=== PATIENT | male | born 1960 | race Caucasian/White ===

== ENCOUNTER 2019-05-31 19:24 | Emergency (ER) | payer OTHER ==
[~2019-05-31] VITALS: Ht 177.8 cm; Wt 79.4 kg
[2019-06-01] MEDS ORDERED: ZITHROMAX500 MG PO (01:11)
[2019-06-01] MEDS ORDERED: TUSNEL LIQUID178 ML PO (01:11)
== END 2019-06-01 05:50 | disposition home or self-care (01) ==
LOC: ER 19:24
DX: R10.31 Right lower quadrant pain (principal); J06.9 Acute upper respiratory infection, unspecified; B96.0 Mycoplasma pneumoniae [M. pneumoniae] as the cause of diseases classified elsewhere

== ENCOUNTER 2020-11-01 13:42 | Emergency (ER) | payer OTHER ==
[~2020-11-01] VITALS: Ht 177.8 cm; Wt 78.0 kg
[~2020-11-01 13:42] MED LIST: TUSNEL LIQUID178 ML PO; ZITHROMAX500 MG PO
== END 2020-11-01 17:17 | disposition home or self-care (01) ==
LOC: ER 13:42
DX: R10.32 Left lower quadrant pain (principal)

== ENCOUNTER 2021-09-19 05:52 | Emergency (ER) | payer OTHER ==
[~2021-09-19] VITALS: Ht 177.8 cm; Wt 78.0 kg
== END 2021-09-19 14:02 | disposition home or self-care (01) ==
LOC: ER 05:52
DX: K29.70 Gastritis, unspecified, without bleeding (principal); J06.9 Acute upper respiratory infection, unspecified; K63.89 Other specified diseases of intestine